=== PATIENT | female | born 1955 | race Caucasian/White ===

== ENCOUNTER → 2021-01-06 09:31 | Outpatient (CLI) | payer MEDICARE, OTHER, SELFPAY ==
--- NOTE | 2021-01-06 10:00 | BRBX_PTH ---
PATIENT: CLEM GARZA LOC: [facility] U#:[id number] AGE/SX: 70/F ROOM: RE01/06/[address]: Dr. Windy Randall MD : 1955 BED: DIS: SPEC #: [id number] RECD: 01/06/21 10:31 STATUS: JEN REQ #: [id number] ALBARO: 01/06/21 10:[address]: Windy Randall DEPT: SURGICAL PATHOLOGY RECD BY: Renae Doe ENTERED: 01/06/21 11:37 SP TYPE: BREAST BX OTHR DR: Dr. Jameson Tabor MD Tissues: Breast, NOS Procedures: Surgery Specimen Level IV HEADER OPERATION: Left breast stereotactic biopsy PRE-OP DIAGNOSIS: Left superior lateral quadrant breast microcalcifications TISSUE SUBMITTED: Left breast core tissue ISCHEMIC TIME: 1 minute FIXATION TIME: 9.5 hours MICROSCOPIC DIAGNOSIS Left breast, superior lateral quadrant microcalcifications, stereotactic core biopsy: Hyalinized fibroadenoma with calcifications. Negative for atypia or malignancy. See comment. MARTA:[email or web address] 01/07/2021 COMMENT Correlation with clinical, radiologic findings and appropriate follow up are necessary. MICROSCOPIC DESCRIPTION Slides are reviewed. GROSS DESCRIPTION Received in fixative is one container labeled with the patient name and designated left breast. The specimen consists of multiple elongated fragments of eisenberg-yellow fibroadipose tissue that in aggregate measure 5 x 3 x 0.3 cm. The entire specimen is submitted in two cassettes. / MARTA:nathan 01/06/21 TC:1 CPT: 10027
--- NOTE | 2021-01-06 12:38 | PCM.OPRPT ---
Report of Operation Date of Procedure: 01/06/21 Pre-Operative Diagnosis: abnormal calcifications seen on left breast mammograms Post-Operative Diagnosis: same Surgery/Procedure Performed:: left stereotactic breast biopsy Description of Surgical Findings:: abnormal calcifications on left breast mammograms Type of Anesthesia:: Local - 1% xylocaine Specimen's removed: left breast tissue Estimated Blood Loss (mL): minimal Description of Procedure: After informed consent was given, the patient was brought into the Breast Biopsy suite. Appropriate time out protocol was followed. The patient was placed in the prone position on the stereotactic biopsy table. The patient?s left breast was then placed in the opening at the head of the biopsy table. A commercial census taker compression mammogram was then obtained in the lateral view. The suspicious radiological lesion was thus identified. Stereo pictures of the lesion were then taken for XYZ coordinates. The Mammotome biopsy stylus was then positioned where it would be entering into the patient?s breast. The skin at this site was then cleansed with a surgical skin preparation. The skin and subcutaneous tissues at this site were then infiltrated with 1% xylocaine. A small skin incision was made with an 11 blade scalpel. The biopsy stylus was then positioned into the patient?s breast at the proper coordinates of depth. Using the Mammotome vacuum-assist device, several core samples of breast tissue were obtained. A specimen mammogram was the obtained. It revealed that the abnormal calcifications were within the specimen. I reviewed this personally and concluded that the tissue sampling was adequate. A hemostatic marker clip was then placed into the biopsy cavity and a commercial census taker film revealed that it was properly deployed. The patient was then placed in the supine position and pressure was applied to the breast until no active bleeding was noted. Steristrips were applied to reapproximate the skin. A unilateral mammogram in the CC and MLO view were then taken which revealed that the marker clip was in the same area as the previous suspicious lesion. The patient tolerated the procedure well and was discharged from the Breast Biopsy suite in good condition. - Complications none noted
== END ==
PROVIDERS: PCP Family Medicine; Referring Provider Surgery; Visit Provider Surgery
DX: D24.2 Benign neoplasm of left breast (principal); R92.1 Mammographic calcification found on diagnostic imaging of breast
CPT/HCPCS: 19081; 88305; J7050; A4648